=== PATIENT | female | born 1940 | race Caucasian/White ===

== ENCOUNTER 2016-07-10 12:06 | Outpatient (CLI) | payer MEDICARE ==
--- NOTE | 2016-07-10 16:01 | RAD ---
TWO VIEWS CHEST: Comparison: 05-25-15 History: Dyspnea on exertion. FINDINGS: Normal cardiac silhouette. The pulmonary vessels and hilum are normal. Costophrenic angles are noah ar. No mass. No consolidation. No pneumothorax or osseous abnormalities. IMPRESSION: No acute cardiopulmonary process. POS: CHRISTOPH
== END 2016-07-10 12:07 | disposition home or self-care (01) ==
LOC: MADRAD 12:06
PROVIDERS: ATTEND Family Medicine
DX: R06.09 Other forms of dyspnea (principal)
CPT/HCPCS: 71020

== ENCOUNTER 2017-10-16 07:51 | Outpatient (CLI) | payer MEDICARE, OTHER ==
--- NOTE | 2017-10-16 10:14 | ULT ---
COMPLETE ABDOMINAL ULTRASOUND: HISTORY: A 76-year-old female with a history of right upper quadrant pain for two weeks. FINDINGS: Coarse liver echogenicity, consistent with some fatty change. Gallbladder wall appears to be minimal ly thickened. There appears to be a single gallstone. The technologist indicates that the patient d id have a positive May sign. The common bile duct is 0.5 cm. The visualized pancreas, IVC, aorta , and spleen are unremarkable. No renal hydronephrosis. IMPRESSION: At least one gallstone within the gallbladder with borderline gallbladder wall thickening and technol ogist indicating positive May sign with concern for possible acute cholecystitis. Consider follow -up nuclear medicine hepatobiliary scan. Fatty changes in the liver. POS: OFF
[2017-10-17 15:16] LABS: Sodium 142 mmol/L (136-145)
[2017-10-17 15:17] LABS: Carbon Dioxide 25 mmol/L (23-31); Chloride 107 mmol/L (98-107); Potassium 4.2 mmol/L (3.5-5.1)
[2017-10-17 15:18] LABS: Anion Gap 14 mmol/L (10-20); BUN (Urea Nitrogen) 16 mg/dL (9.8-20.1); Bilirubin, Total 0.4 mg/dL (0.2-1.2); Calc. Creatinine Clearance 0 mL/min (70-130); Calcium 9.3 mg/dL (7.8-10.44); Estimated GFR-MDRD 83; Glucose 135 mg/dL (83-110)
[2017-10-17 15:19] LABS: ALT (SGPT) 35 U/L (8-55); AST (SGOT) 24 U/L (5-34); Albumin 3.9 g/dL (3.4-4.8); Alkaline Phosphatase 80 U/L (40-150); Globulin 2.8 g/dL (2.4-3.5); Lipase 14 U/L (8-78); Protein, Total 6.7 g/dL (5.8-8.1)
[2017-10-17 15:22] LABS: Mean Corpuscular HGB CONC 35.3 g/dL (32.0-36.0); Mean Corpuscular Hemoglobin 31.9 pg (27.0-31.0); Mean Corpuscular Volume 90.2 fL (81.0-99.0); Mean Platelet Volume 9.5 fL (7.4-10.4); Platelet Count 147 thou/uL (130-400); RBC Distribution Width 11.2 % (11.5-14.5); Red Blood Cell (RBC) Count 4.09 mill/uL (4.20-5.40); White Blood Cell (WBC) Count 5.2 thou/uL (4.8-10.8)
[2017-10-17 15:24] LABS: #Lymphocytes 1.6 thou/uL (1.20-3.40); #Neutrophils 2.8 thou/uL (1.40-6.50); %Basophils 1.1 % (0.0-1.0); %Eosinophils 1.1 % (0.0-10.0); %Monocytes 12.9 % (0.0-10.0)
[2017-10-17 15:25] LABS: #Basophils 0.1 thou/uL (0.0-0.2); #Eosinphils 0.1 thou/uL (0.0-0.7); #Monocytes 0.7 thou/uL (0.11-0.59)
== END 2017-10-16 07:52 | disposition home or self-care (01) ==
LOC: MADULT 07:51
PROVIDERS: ATTEND Family Medicine
DX: R10.11 Right upper quadrant pain (principal)
CPT/HCPCS: 36415; 76700; 80053; 82150; 83690; 85025

== ENCOUNTER 2017-11-26 14:15 | Outpatient (CLI) | payer MEDICARE ==
[2017-11-26 14:33] LABS: #Basophils 0.1 thou/uL (0.0-0.2); #Lymphocytes 1.2 thou/uL (1.20-3.40); #Monocytes 0.5 thou/uL (0.11-0.59); #Neutrophils 2.4 thou/uL (1.40-6.50); %Basophils 1.7 % (0.0-1.0); %Eosinophils 0.9 % (0.0-10.0); %Lymphocytes 28.1 % (21.0-51.0); %Monocytes 11.4 % (0.0-10.0); %Neutrophils 57.9 % (42.0-75.0); Hemoglobin 12.2 g/dL (12.0-16.0); Mean Corpuscular HGB CONC 34.3 g/dL (32.0-36.0); Mean Corpuscular Hemoglobin 31.1 pg (27.0-31.0); Mean Corpuscular Volume 90.8 fl (81.0-99.0); Mean Platelet Volume 8.4 fL (7.4-10.4); Platelet Count 171 thou/uL (130-400); RBC Distribution Width 11.6 % (11.5-14.5); Red Blood Cell (RBC) Count 3.91 mill/uL (4.20-5.40); White Blood Cell (WBC) Count 4.1 thou/uL (4.8-10.8)
[2017-11-26 14:45] LABS: ALT (SGPT) 35 U/L (8-55); AST (SGOT) 27 U/L (5-34); Albumin 4.1 g/dL (3.4-4.8); Alkaline Phosphatase 96 U/L (40-150); Anion Gap 14 mmol/L (10-20); BUN (Urea Nitrogen) 16 mg/dL (9.8-20.1); Bilirubin, Total 0.4 mg/dL (0.2-1.2); Calc. Creatinine Clearance 0 mL/min (70-130); Calcium 9.9 mg/dL (7.8-10.44); Carbon Dioxide 26 mmol/L (23-31); Chloride 107 mmol/L (98-107); Estimated GFR-MDRD 70; Globulin 3.1 g/dL (2.4-3.5); Glucose 183 mg/dL (83-110); Potassium 5.2 mmol/L (3.5-5.1); Protein, Total 7.2 g/dL (6.0-8.3); Sodium 142 mmol/L (136-145)
== END 2017-11-26 14:16 | disposition home or self-care (01) ==
LOC: MADLAB 14:15
PROVIDERS: ATTEND Internal Medicine Rheumatology
DX: M45.0 Ankylosing spondylitis of multiple sites in spine (principal); Z79.899 Other long term (current) drug therapy
CPT/HCPCS: 36415; 80053; 85025; 85652; 86140

== ENCOUNTER 2018-01-06 12:28 | Outpatient (CLI) | payer MEDICARE ==
[2018-01-06 12:55] LABS: #Basophils 0.1 thou/uL (0.0-0.2); #Monocytes 0.4 thou/uL (0.11-0.59); #Neutrophils 2.1 thou/uL (1.40-6.50); %Basophils 1.7 % (0.0-1.0); %Eosinophils 1.3 % (0.0-10.0); %Lymphocytes 26.9 % (21.0-51.0); %Monocytes 12.1 % (0.0-10.0); Hemoglobin 12.3 g/dL (12.0-16.0); Mean Corpuscular HGB CONC 33.7 g/dL (32.0-36.0); Mean Corpuscular Hemoglobin 31.1 pg (27.0-31.0); Mean Corpuscular Volume 92.3 fL (78.0-98.0); Mean Platelet Volume 8.7 fL (7.4-10.4); Platelet Count 149 thou/uL (130-400); RBC Distribution Width 11.5 % (11.5-14.5); Red Blood Cell (RBC) Count 3.94 mill/uL (4.20-5.40); White Blood Cell (WBC) Count 3.5 thou/uL (4.8-10.8)
== END 2018-01-06 12:29 | disposition home or self-care (01) ==
LOC: MADLAB 12:28
PROVIDERS: ATTEND Internal Medicine Rheumatology
DX: M45.0 Ankylosing spondylitis of multiple sites in spine (principal); Z79.899 Other long term (current) drug therapy
CPT/HCPCS: 36415; 85025

== ENCOUNTER 2018-07-18 11:06 | Outpatient (CLI) | payer MEDICARE ==
--- NOTE | 2018-07-18 15:16 | RAD ---
RIGHT HAND THREE VIEWS: HISTORY: Hand pain. No history of trauma. FINDINGS: The bones appear slightly demineralized. There are mild arthritic changes of the hand and wrist. No bony erosive change. 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 POS: TPC
--- NOTE | 2018-07-18 15:20 | RAD ---
RIGHT WRIST FOUR VIEWS: 07/18/2018 HISTORY: Right wrist pain. No history of trauma or injury. FINDINGS: No fracture or dislocation is seen involving the right wrist. There is slight irregularity at the la teral aspect waist of the scaphoid bone, but this does not appear to represent a fracture. There are no lytic or sclerotic osseous lesions identified. No other findings. IMPRESSION: No acute osseous abnormality right wrist. If the patient's pain persists, follow-up imaging is advised. POS: JEREMIAH
--- NOTE | 2018-07-18 15:20 | RAD ---
4 VIEWS LEFT WRIST: Date: 07/18/18 CLINICAL HISTORY: Left wrist pain without injury. FINDINGS: There is no evidence for fracture or other acute osseous abnormality. Alignment appears anatomic. Dinah nt spaces appear preserved. Soft tissues appear radiographically unremarkable. IMPRESSION: No evidence for an acute osseous abnormality or significant arthropathy. POS: TPC
--- NOTE | 2018-07-18 15:21 | RAD ---
LEFT WRIST THREE VIEWS: 07/18/2018 HISTORY: Left hand pain. FINDINGS: There is no evidence of a fracture, dislocation, or other osseous abnormality involving the left hand . IMPRESSION: No acute osseous abnormality. POS: CHRISTOPH
== END 2018-07-18 11:07 | disposition home or self-care (01) ==
LOC: MADRAD 11:06
DX: M25.531 Pain in right wrist (principal); M25.532 Pain in left wrist; M79.641 Pain in right hand; M79.642 Pain in left hand; M19.041 Primary osteoarthritis, right hand; M19.031 Primary osteoarthritis, right wrist

== ENCOUNTER 2019-05-06 11:27 | Outpatient (CLI) | payer MEDICARE ==
--- NOTE | 2019-05-06 11:46 | RAD ---
XR Ankle Lt 3 View STANDARD: 05/06/2019 11:35 AM CLINICAL INDICATION: Pain COMPARISON: None. FINDINGS: Fracture:No fracture. Arthropathy:Mild osteoarthritis. Calcaneal enthesophyte formation at the plantar aspect is present Incidental findings:None of significance. IMPRESSION: 1. No acute osseous abnormality.
== END 2019-05-06 11:28 | disposition home or self-care (01) ==
LOC: MADRAD 11:27
PROVIDERS: ATTEND Family Medicine
DX: M25.572 Pain in left ankle and joints of left foot (principal); G89.29 Other chronic pain

== ENCOUNTER 2019-12-16 15:50 | Emergency (ER) | payer MEDICARE, OTHER ==
[2019-12-16 17:13] LABS: #Basophils 0.1 thou/uL (0.0-0.2); #Lymphocytes 1.4 thou/uL (1.20-3.40); #Monocytes 0.7 thou/uL (0.11-0.59); %Basophils 0.8 % (0.0-1.0); %Eosinophils 0.4 % (0.0-10.0); %Monocytes 9.5 % (0.0-10.0); %Neutrophils 70.3 % (42.0-75.0); Hemoglobin 12.5 g/dL (12.0-16.0); Mean Corpuscular HGB CONC 33.5 g/dL (32.0-36.0); Mean Corpuscular Hemoglobin 31.3 pg (27.0-31.0); Mean Corpuscular Volume 93.4 fL (78.0-98.0); Mean Platelet Volume 7.7 fL (7.4-10.4); Platelet Count 205 thou/uL (130-400); RBC Distribution Width 11.3 % (11.5-14.5); White Blood Cell (WBC) Count 7.1 thou/uL (4.8-10.8)
[2019-12-16 17:31] LABS: ALT (SGPT) 25 U/L (8-55); AST (SGOT) 20 U/L (5-34); Albumin 4.3 g/dL (3.4-4.8); Alkaline Phosphatase 100 U/L (40-110); Anion Gap 17 mmol/L (10-20); BUN (Urea Nitrogen) 27 mg/dL (9.8-20.1); Bilirubin, Total 0.2 mg/dL (0.2-1.2); Calc. Creatinine Clearance 0 mL/min (70-130); Calcium 9.5 mg/dL (7.8-10.44); Carbon Dioxide 24 mmol/L (23-31); Chloride 103 mmol/L (98-107); Estimated GFR-MDRD 42; Globulin 3.3 g/dL (2.4-3.5); Glucose 289 mg/dL (83-110); Potassium 4.8 mmol/L (3.5-5.1); Protein, Total 7.6 g/dL (6.0-8.3); Sodium 139 mmol/L (136-145)
--- NOTE | 2019-12-16 17:39 | RAD ---
XR Chest 1 View Portable History: Dyspnea Comparison: Radiograph 2017 Findings: Lungs are clear. No pneumothorax or effusion. Cardiac silhouette and mediastinal contours a re within normal limits. No acute osseous abnormality. Impression: No acute intrathoracic abnormality.
== END 2019-12-16 18:20 | disposition home or self-care (01) ==
LOC: MADERS 15:50
DX: F41.9 Anxiety disorder, unspecified (principal); F43.0 Acute stress reaction; R06.00 Dyspnea, unspecified; Z20.828 Contact with and (suspected) exposure to other viral communicable diseases; K59.00 Constipation, unspecified; I10 Essential (primary) hypertension; J30.2 Other seasonal allergic rhinitis; E11.40 Type 2 diabetes mellitus with diabetic neuropathy, unspecified; G90.9 Disorder of the autonomic nervous system, unspecified; M19.90 Unspecified osteoarthritis, unspecified site; Z79.899 Other long term (current) drug therapy; Z79.84 Long term (current) use of oral hypoglycemic drugs
CPT/HCPCS: 36415; 71045; 80053; 83880; 85025; 87633

== ENCOUNTER 2021-06-21 14:19 | Outpatient (CLI) | payer MEDICARE | END 2021-06-21 14:20 | disposition home or self-care (01) | LOC: MADLAB 14:19 | PROVIDERS: ATTEND Family Medicine | DX: M54.50 Low back pain, unspecified (principal); M47.816 Spondylosis without myelopathy or radiculopathy, lumbar region | CPT/HCPCS: 72100 ==

== ENCOUNTER 2022-12-26 09:57 | Outpatient (CLI) | payer MEDICARE | END 2022-12-26 09:58 | disposition home or self-care (01) | LOC: MADRAD 09:57 | PROVIDERS: ATTEND Internal Medicine | DX: R06.09 Other forms of dyspnea (principal) | CPT/HCPCS: 71046 ==

== ENCOUNTER 2023-02-08 12:51 | Outpatient (CLI) | payer MEDICARE | END 2023-02-08 12:52 | disposition home or self-care (01) | LOC: MADEKG 12:51 | PROVIDERS: ATTEND Internal Medicine | DX: R06.02 Shortness of breath (principal) | CPT/HCPCS: 93005; 93010 ==

== ENCOUNTER 2024-02-13 11:54 | Outpatient (CLI) | payer MEDICARE | END 2024-02-13 11:55 | disposition home or self-care (01) | LOC: MADLAB 11:54 | PROVIDERS: ATTEND Nurse Practitioner Family | DX: M25.571 Pain in right ankle and joints of right foot (principal) ==

== ENCOUNTER 2025-02-08 09:05 | Outpatient (CLI) | payer MEDICARE ==
[2025-02-08 09:45] LABS: #Basophils 0.0 thou/uL (0.0-0.2); #Eosinophils 0.1 thou/uL (0.0-0.7); #Lymphocytes 1.1 thou/uL (1.20-3.40); #Monocytes 0.3 thou/uL (0.11-0.59); #Neutrophils 2.1 thou/uL (1.40-6.50); %Basophils 0.9 % (0.0-1.0); %Eosinophils 1.6 % (0.0-10.0); %Lymphocytes 30.9 % (21.0-51.0); %Monocytes 9.2 % (0.0-10.0); %Neutrophils 57.5 % (42.0-75.0); Hematocrit 34.4 % (36.0-47.0); Hemoglobin 11.3 g/dL (12.0-16.0); Mean Corpuscular Hemoglobin 31.4 pg (27.0-31.0); Mean Corpuscular Volume 95.5 fl (78.0-98.0); Platelet Count 169 10x3/uL (130-400); Red Blood Cell (RBC) Count 3.60 mill/uL (4.20-5.40); White Blood Cell (WBC) Count 3.6 10x3/uL (4.8-10.8)
[2025-02-08 09:54] LABS: ALT (SGPT) 11 U/L (Less than 34); AST (SGOT) 23 U/L (11-34); Albumin 4.0 g/dL (3.1-4.5); Alkaline Phosphatase 62 U/L (40-110); Anion Gap 15 mmol/L (10-20); BUN (Urea Nitrogen) 18 mg/dL (9.8-20.1); Bilirubin, Total 0.4 mg/dL (0.3-1.2); Calc. Creatinine Clearance 0 mL/min (70-130); Calcium 9.5 mg/dL (7.8-10.44); Carbon Dioxide 23 mmol/L (23-31); Chloride 110 mmol/L (98-107); Globulin 3.3 g/dL (2.4-3.5); Glucose 89 mg/dL (83-110); Potassium 4.6 mmol/L (3.5-5.1); Sodium 143 mmol/L (136-145)
[2025-02-08 16:45] LABS: Free T4 (Free Thyroxine) 0.9 ng/dL (0.70-1.48); Vitamin B12 1308.0 pg/mL (211-911)
== END 2025-02-08 09:06 | disposition home or self-care (01) ==
LOC: MADLAB 09:05
PROVIDERS: ATTEND Internal Medicine Endocrinology, Diabetes & Metabolism
DX: E11.9 Type 2 diabetes mellitus without complications (principal); I10 Essential (primary) hypertension; D53.9 Nutritional anemia, unspecified; E53.8 Deficiency of other specified B group vitamins; E78.5 Hyperlipidemia, unspecified
CPT/HCPCS: 36415; 80053; 82607; 82746; 83036; 83090; 84439; 84443; 85025